=== PATIENT | male | born 1990 | race Caucasian/White ===

== ENCOUNTER 2016-09-14 14:29 | Emergency (ER) | payer SELFPAY ==
[2016-09-14] MEDS ORDERED: NORCO, ANEXSIA 5/325MG TABLET (HYDROcodone/ACETAMINOPHEN) As Ordered ONE (15:17)
[2016-09-14] MEDS ORDERED: AMOXICILLIN 500 MG CAP As Ordered ONE (15:17)
--- NOTE | 2016-09-14 15:25 | EDDOCDS ---
Physician Documentation [facility] Name: Isaac Amato Age: 25 yrs Sex: Male : 1990 Arrival Date: 09/14/2016 Time: 14:29 Bed Triage 3 Private MD: NO PRIMARY PHYSICIAN, . Disposition: 09/14/16 15:11 Discharged to Home/Self Care. Impression: Atypical facial pain - dental caries. - Condition is Stable. - Discharge Instructions: Dental Pain. - Prescriptions for Amoxicillin 500 mg Oral Capsule - take 1 capsule by ORAL route every 8 hours for 10 days; 30 tablet. Naprosyn 500 mg Oral Tablet - take 1 tablet by ORAL route 2 times per day take with food; 30 tablet. Hydrocodone- Acetaminophen 5-325 mg Oral Tablet - take 1 tablet by ORAL route every 6 hours As needed MDD: 4 tabs; 12 tablet. - Medication Reconciliation, Dental Referral List form. - Follow up: Your, Dentist; When: Call to arrange an appointment; Reason: Wound/Symptom Recheck, Recheck today's complaints, Worsening of conditions, Continuance of care. - Problem is an ongoing problem. - Symptoms are unchanged. Historical: - Allergies: no known allergies; - Home Meds: 1. none - PMHx: none; - PSHx: none; - Social history: Smoking status: Patient uses tobacco products, current every day smoker. No barriers to communication noted, The patient speaks fluent Georgian. - Family history: Not pertinent. - : The pt / caregiver states he / she is not on anticoagulants. Home medication list is obtained from the patient. - Exposure Risk Screening:: None identified. Vital Signs: 09/14 14:31 BP 156 / 82; Pulse 87; Resp 16; Temp 98.9(O); Pulse Ox 100% on R/A; Weight 63.5 kg / elp 139.99 lbs (R); Height 5 ft. 5 in. (165.10 cm) (R); Pain 8/10; 14:31 Body Mass Index 23.30 (63.50 kg, 165.10 cm) elp MDM: 15:11 Amoxicillin 500 mg PO once ordered. cc10 15:11 HYDROcodone-acetaminophen 5 mg-325 mg 1 tabs PO once ordered. cc10 Administered Medications: 15:21 Drug: Amoxicillin 500 mg [amoxicillin 500 mg capsule (1 caps)] Route: PO; jennifer 15:21 Drug: HYDROcodone-acetaminophen 1 tabs [hydrocodone 5 mg-acetaminophen 325 mg tablet (1 jmb tabs)] Route: PO; Signatures: Isaac Toledo RN RN dwg Becker, Joshua, RN RN jmb Coniski, Colin, SANTIAGOC PAMarilynC cc10 MTDD
--- NOTE | 2016-09-14 15:25 | EDDOCDS ---
Nurse's Notes [facility] [place] Name: Isaac Amato Age: 25 yrs Sex: Male : 1990 Arrival Date: 09/14/2016 Time: 14:29 Bed Triage 3 Private MD: NO PRIMARY PHYSICIAN, . Diagnosis: Atypical facial pain-dental caries Presentation: 09/14 14:43 Presenting complaint: Patient states: Dental pain, bottom left molar, symptoms for 2 dwg weeks. Adult Sepsis Screening: The patient does not have new or worsening altered mentation. Patient's respiratory rate is less than 22. Systolic blood pressure is greater than 100. Patient has a qSOFA score of 0- Negative Sepsis Screen. Suicide/Homicide risk assessment- the patient denies having any suicidal and/or homicidal ideations and does not present with any other emotional, behavioral or mental health complaints. Status: Patient is not a counseling services manager or dependent. Transition of care: patient was not received from another setting of care. 14:43 Acuity: ALICE Level 5 dwg 14:43 Method Of Arrival: Walkin/Carried/Asstd dwg Triage Assessment: 14:45 General: Appears in no apparent distress. Pain: Pain currently is 8 out of 10 on a pain dwg scale. HIV screening NA for this visit Offered previously. 15:23 EENT: Reports pain in mouth. jmb Historical: - Allergies: no known allergies; - Home Meds: 1. none - PMHx: none; - PSHx: none; - Social history: Smoking status: Patient uses tobacco products, current every day smoker. No barriers to communication noted, The patient speaks fluent Austrian. - Family history: Not pertinent. - : The pt / caregiver states he / she is not on anticoagulants. Home medication list is obtained from the patient. - Exposure Risk Screening:: None identified. Screenin:21 Screening information is obtained from the patient. Fall risk: No risks identified. jmb Assistance ADL's: requires no assistance with activities of daily living. Abuse/DV Screen: The patient / caregiver reports he/she is: not in a situation that causes fear, pain or injury. Nutritional screening: No deficits noted. Advance Directives: Currently, there is no health care proxy. There is no active DNR order. There is no living will. There is no Power of Filler Shaker. home support is adequate. Assessment: 15:21 General: Patient instructed on discharge instructions. Patient asked if there were any jmb questions regarding discharge, patient stated no. Patient signed discharge instructions. Patient discharged in stable condition. . EENT: No deficits noted. Vital Signs: 14:31 BP 156 / 82; Pulse 87; Resp 16; Temp 98.9(O); Pulse Ox 100% on R/A; Weight 63.5 kg (R); elp Height 5 ft. 5 in. (165.10 cm) (R); Pain 8/10; 14:31 Body Mass Index 23.30 (63.50 kg, 165.10 cm) elp Vitals: 14:31 Log In Time: September 14, 2016 at 14:29. el ED Course: 14:30 Patient visited by Araceli Patel PCA. elp 14:30 Patient moved to Waiting elp 14:31 NO PRIMARY PHYSICIAN, . is Private Physician. elp 14:32 Patient visited by Araceli Patel PCA. elp 14:32 Patient moved to Pre RCE elp 14:44 Triage Initiated dwg 15:04 Patient moved to Triage 3 jmb 15:10 Miguel Rai PA-C [facility]. cc10 15:10 Swathi Stock MD is Attending Physician. cc10 15:10 Patient visited by Miguel Rai PA-C. cc10 15:10 Patient visited by Miguel Rai PA-C. cc10 15:11 Your, Dentist is Referral Physician. cc10 15:21 The patient / caregiver is instructed regarding the plan of care and ED course. jmb 15:21 No IV's were initiated during this patient's visit. No procedures done that require jmb assistance. Administered Medications: 15:21 Drug: Amoxicillin 500 mg [amoxicillin 500 mg capsule (1 caps)] Route: PO; jmb 15:21 Drug: HYDROcodone-acetaminophen 1 tabs [hydrocodone 5 mg-acetaminophen 325 mg tablet (1 jmb tabs)] Route: PO; Order Results: There are currently no results for this order. Outcome: 15:11 Discharge ordered by Provider. cc10 15:21 Discharge Assessment: Patient awake, alert and oriented x 3. No cognitive and/or jmb functional deficits noted. Patient verbalized understanding of disposition instructions. Patient awake and alert. obeys commands, Oriented to person, place and time. Patient verbalized understanding of disposition instructions. Patient has no functional deficits. patient administered narcotics - yes. Pt provided with safe discharge. The following High Risk Discharge criteria are identified: None. Discharged to home ambulatory, with family. Condition: stable Condition: improved. Discharge instructions given to patient, Instructed on discharge instructions, follow up and referral plans. medication usage, Demonstrated understanding of instructions, medications, Pt was receptive of discharge instructions/ teaching. Prescriptions given X 3. No special radiology studies were completed. Property sent home with patient. 15:23 Patient left the ED. jennifer Signatures: Isaac Toledo, RN RN Araceli Urias, [employer] COMMUNITY OUTREACH WORKER Francesco Schultz RN RN jmb Coniski, Colin, PAMarilynC PA-C cc10 SANTY
--- NOTE | 2016-09-16 16:25 | EDDOCDS ---
Physician Documentation [facility] Name: Isaac Amato Age: 25 yrs Sex: Male : 1990 Arrival Date: 09/14/2016 Time: 14:29 Bed Triage 3 Private MD: NO PRIMARY PHYSICIAN, . Disposition: 09/14/16 15:11 Discharged to Home/Self Care. Impression: Atypical facial pain - dental caries. - Condition is Stable. - Discharge Instructions: Dental Pain. - Prescriptions for Amoxicillin 500 mg Oral Capsule - take 1 capsule by ORAL route every 8 hours for 10 days; 30 tablet. Naprosyn 500 mg Oral Tablet - take 1 tablet by ORAL route 2 times per day take with food; 30 tablet. Hydrocodone- Acetaminophen 5-325 mg Oral Tablet - take 1 tablet by ORAL route every 6 hours As needed MDD: 4 tabs; 12 tablet. - Medication Reconciliation, Dental Referral List form. - Follow up: Your, Dentist; When: Call to arrange an appointment; Reason: Wound/Symptom Recheck, Recheck today's complaints, Worsening of conditions, Continuance of care. - Problem is an ongoing problem. - Symptoms are unchanged. Historical: - Allergies: no known allergies; - Home Meds: 1. none - PMHx: none; - PSHx: none; - Social history: Smoking status: Patient uses tobacco products, current every day smoker. No barriers to communication noted, The patient speaks fluent Nauruan. - Family history: Not pertinent. - : The pt / caregiver states he / she is not on anticoagulants. Home medication list is obtained from the patient. - Exposure Risk Screening:: None identified. Vital Signs: 09/14 14:31 BP 156 / 82; Pulse 87; Resp 16; Temp 98.9(O); Pulse Ox 100% on R/A; Weight 63.5 kg / elp 139.99 lbs (R); Height 5 ft. 5 in. (165.10 cm) (R); Pain 8/10; 14:31 Body Mass Index 23.30 (63.50 kg, 165.10 cm) elp MDM: 15:11 Amoxicillin 500 mg PO once ordered. cc10 15:11 HYDROcodone-acetaminophen 5 mg-325 mg 1 tabs PO once ordered. cc10 15:27 Financial registration complete. mm15 15:27 [facility] Payment Agreement was scanned into [employer] and attached to record. mm15 17:11 T-Sheet-- Draft Copy was scanned into [employer] and attached to record. klr Administered Medications: 15:21 Drug: Amoxicillin 500 mg [amoxicillin 500 mg capsule (1 caps)] Route: PO; jmb 15:21 Drug: HYDROcodone-acetaminophen 1 tabs [hydrocodone 5 mg-acetaminophen 325 mg tablet (1 jmb tabs)] Route: PO; Signatures: Isaac Toledo RN RN dwg McGrath, Marlynn mm15 Francesco DuRN RN nathalieb Miguel Rai, PAMarilynC PA-C cc10 Stormy Bass The chart was reviewed and I authenticate all verbal orders and agree with the evaluation and treatment provided.Attachments: 15:27 [facility] [place] Agreement mm15 17:11 T-Sheet-- Draft Copy klr Chart Complete MTDD
--- NOTE | 2016-09-16 16:25 | EDDOCDS ---
Physician Documentation [facility] Name: Isaac Amato Age: 25 yrs Sex: Male : 1990 Arrival Date: 09/14/2016 Time: 14:29 Bed Triage 3 Private MD: NO PRIMARY PHYSICIAN, . Disposition: 09/14/16 15:11 Discharged to Home/Self Care. Impression: Atypical facial pain - dental caries. - Condition is Stable. - Discharge Instructions: Dental Pain. - Prescriptions for Amoxicillin 500 mg Oral Capsule - take 1 capsule by ORAL route every 8 hours for 10 days; 30 tablet. Naprosyn 500 mg Oral Tablet - take 1 tablet by ORAL route 2 times per day take with food; 30 tablet. Hydrocodone- Acetaminophen 5-325 mg Oral Tablet - take 1 tablet by ORAL route every 6 hours As needed MDD: 4 tabs; 12 tablet. - Medication Reconciliation, Dental Referral List form. - Follow up: Your, Dentist; When: Call to arrange an appointment; Reason: Wound/Symptom Recheck, Recheck today's complaints, Worsening of conditions, Continuance of care. - Problem is an ongoing problem. - Symptoms are unchanged. Historical: - Allergies: no known allergies; - Home Meds: 1. none - PMHx: none; - PSHx: none; - Social history: Smoking status: Patient uses tobacco products, current every day smoker. No barriers to communication noted, The patient speaks fluent Croatian. - Family history: Not pertinent. - : The pt / caregiver states he / she is not on anticoagulants. Home medication list is obtained from the patient. - Exposure Risk Screening:: None identified. Vital Signs: 09/14 14:31 BP 156 / 82; Pulse 87; Resp 16; Temp 98.9(O); Pulse Ox 100% on R/A; Weight 63.5 kg / elp 139.99 lbs (R); Height 5 ft. 5 in. (165.10 cm) (R); Pain 8/10; 14:31 Body Mass Index 23.30 (63.50 kg, 165.10 cm) elp MDM: 15:11 Amoxicillin 500 mg PO once ordered. cc10 15:11 HYDROcodone-acetaminophen 5 mg-325 mg 1 tabs PO once ordered. cc10 15:27 Financial registration complete. mm15 15:27 [facility] Payment Agreement was scanned into [employer] and attached to record. mm15 17:11 T-Sheet-- Draft Copy was scanned into [employer] and attached to record. klr Administered Medications: 15:21 Drug: Amoxicillin 500 mg [amoxicillin 500 mg capsule (1 caps)] Route: PO; jmb 15:21 Drug: HYDROcodone-acetaminophen 1 tabs [hydrocodone 5 mg-acetaminophen 325 mg tablet (1 jmb tabs)] Route: PO; Signatures: Isaac Toledo RN RN dwg McGrath, Marlynn mm15 Francesco DuRN RN nathalieb Miguel Rai, PAMarilynC PA-C cc10 Stormy Bass The chart was reviewed and I authenticate all verbal orders and agree with the evaluation and treatment provided.Attachments: 15:27 [facility] [place] Payment Agreement mm15 17:11 T-Sheet-- Draft Copy klr Chart Complete MTDD
--- NOTE | 2016-09-16 16:25 | EDDOCDS ---
Nurse's Notes [facility] Name: Isaac Amato Age: 25 yrs Sex: Male : 1990 Arrival Date: 09/14/2016 Time: 14:29 Bed Triage 3 Private MD: NO PRIMARY PHYSICIAN, . Diagnosis: Atypical facial pain-dental caries Presentation: 09/14 14:43 Presenting complaint: Patient states: Dental pain, bottom left molar, symptoms for 2 dwg weeks. Adult Sepsis Screening: The patient does not have new or worsening altered mentation. Patient's respiratory rate is less than 22. Systolic blood pressure is greater than 100. Patient has a qSOFA score of 0- Negative Sepsis Screen. Suicide/Homicide risk assessment- the patient denies having any suicidal and/or homicidal ideations and does not present with any other emotional, behavioral or mental health complaints. Status: Patient is not a community service manager or dependent. Transition of care: patient was not received from another setting of care. 14:43 Acuity: ALICE Level 5 dwg 14:43 Method Of Arrival: Walkin/Carried/Asstd dwg Triage Assessment: 14:45 General: Appears in no apparent distress. Pain: Pain currently is 8 out of 10 on a pain dwg scale. HIV screening NA for this visit Offered previously. 15:23 EENT: Reports pain in mouth. jmb Historical: - Allergies: no known allergies; - Home Meds: 1. none - PMHx: none; - PSHx: none; - Social history: Smoking status: Patient uses tobacco products, current every day smoker. No barriers to communication noted, The patient speaks fluent Andorran. - Family history: Not pertinent. - : The pt / caregiver states he / she is not on anticoagulants. Home medication list is obtained from the patient. - Exposure Risk Screening:: None identified. Screenin:21 Screening information is obtained from the patient. Fall risk: No risks identified. jmb Assistance ADL's: requires no assistance with activities of daily living. Abuse/DV Screen: The patient / caregiver reports he/she is: not in a situation that causes fear, pain or injury. Nutritional screening: No deficits noted. Advance Directives: Currently, there is no health care proxy. There is no active DNR order. There is no living will. There is no Power of Machine Bender. home support is adequate. Assessment: 15:21 General: Patient instructed on discharge instructions. Patient asked if there were any jmb questions regarding discharge, patient stated no. Patient signed discharge instructions. Patient discharged in stable condition. . EENT: No deficits noted. Vital Signs: 14:31 BP 156 / 82; Pulse 87; Resp 16; Temp 98.9(O); Pulse Ox 100% on R/A; Weight 63.5 kg (R); elp Height 5 ft. 5 in. (165.10 cm) (R); Pain 8/10; 14:31 Body Mass Index 23.30 (63.50 kg, 165.10 cm) elp Vitals: 14:31 Log In Time: September 14, 2016 at 14:29[facility] Course: 14:30 Patient visited by Araceli Patel PCA. elp 14:30 Patient moved to Waiting elp 14:31 NO PRIMARY PHYSICIAN, . is Private Physician. elp 14:32 Patient visited by Araceli Patel PCA. elp 14:32 Patient moved to Pre RCE elp 14:44 Triage Initiated dwg 15:04 Patient moved to Triage 3 jmb 15:10 Miguel R[facility]-C [facility] cc10 15:10 Swathi Stock MD is Attending Physician. cc10 15:10 Patient visited by Miguel Rai PA-C. cc10 15:10 Patient visited by Miguel Rai PA-C. cc10 15:11 Your, Dentist is Referral Physician. cc10 15:21 The patient / caregiver is instructed regarding the plan of care and ED course. jmb 15:21 No IV's were initiated during this patient's visit. No procedures done that require jmb assistance. 15:27 [facility] [place] Agreement was scanned into [employer] and attached to record. mm15 17:11 T-Sheet-- Draft Copy was scanned into [employer] and attached to record. klr Administered Medications: 15:21 Drug: Amoxicillin 500 mg [amoxicillin 500 mg capsule (1 caps)] Route: PO; jmb 15:21 Drug: HYDROcodone-acetaminophen 1 tabs [hydrocodone 5 mg-acetaminophen 325 mg tablet (1 jmb tabs)] Route: PO; Order Results: There are currently no results for this order. Outcome: 15:11 Discharge ordered by Provider. cc10 15:21 Discharge Assessment: Patient awake, alert and oriented x 3. No cognitive and/or jmb functional deficits noted. Patient verbalized understanding of disposition instructions. Patient awake and alert. obeys commands, Oriented to person, place and time. Patient verbalized understanding of disposition instructions. Patient has no functional deficits. patient administered narcotics - yes. Pt provided with safe discharge. The following High Risk Discharge criteria are identified: None. Discharged to home ambulatory, with family. Condition: stable Condition: improved. Discharge instructions given to patient, Instructed on discharge instructions, follow up and referral plans. medication usage, Demonstrated understanding of instructions, medications, Pt was receptive of discharge instructions/ teaching. Prescriptions given X 3. No special radiology studies were completed. Property sent home with patient. 15:23 Patient left the ED. jennifer Signatures: Isaac Toledo, RN Gabby Alvarez mm15 Araceli Patel, CIRCUIT BOARD INSPECTOR CIRCUIT BOARD INSPECTOR Francesco Schultz RN RN jmb Coniski, Colin, PA-C PA-C cc10 Stormy Bass Chart Complete MTDRajendra
== END 2016-09-14 15:23 | disposition home or self-care (01) ==
LOC: M ED 14:29
DX: K02.9 Dental caries, unspecified (principal); G50.1 Atypical facial pain; F17.200 Nicotine dependence, unspecified, uncomplicated

== ENCOUNTER 2016-10-14 10:24 | Emergency (ER) | payer SELFPAY ==
[2016-10-14] MEDS ORDERED: AUGMENTIN 875 MG TAB As Ordered ONE (10:41)
[2016-10-14] MEDS ORDERED: KETOROLAC TROMETHAMINE 10 MG TAB As Ordered ONE (10:41)
--- NOTE | 2016-10-14 11:31 | REP ---
RIGHT KNEE, FIVE VIEWS: HISTORY: Trauma. There is no acute fracture or dislocation. The joint spaces are normal in appearance. IMPRESSION: There is no acute fracture or dislocation. Signed by Binu Aburto MD 10/14/2016 11:41 A
--- NOTE | 2016-10-14 11:41 | EDDOCDS ---
Physician Documentation [facility] Name: Isaac Amato Age: 25 yrs Sex: Male : 1990 Arrival Date: 10/14/2016 Time: 10:24 Bed TR8 Private MD: NO PRIMARY PHYSICIAN, . Disposition: 10/14/16 11:29 Discharged to Home/Self Care. Impression: Abrasion of lower leg - right, Pain in right knee, Fall from skateboard. - Condition is Stable. - Discharge Instructions: Abrasion. - Prescriptions for Augmentin 875- 125 mg Oral Tablet - take 1 tablet by ORAL route every 12 hours for 10 days; 20 tablet. Naprosyn 500 mg Oral Tablet - take 1 tablet by ORAL route 2 times per day take with food; 30 tablet. - Medication Reconciliation form. - [facility]; When: Call to arrange an appointment; Reason: To establish care. - Problem is new. - Symptoms have improved. Historical: - Allergies: no known allergies; - Home Meds: 1. none - PMHx: none; - PSHx: none; - Social history: Smoking status: Patient uses tobacco products, current every day smoker. No barriers to communication noted, The patient speaks fluent Taiwanese, Speaks appropriately for age. - Family history: Not pertinent. - : The pt / caregiver states he / she is not on anticoagulants. Home medication list is obtained from the patient. - Exposure Risk Screening:: None identified. Vital Signs: 10/14 10:27 BP 134 / 69; Pulse 80; Resp 18; Temp 96.8(TE); Pulse Ox 100% on R/A; Weight 63.5 kg / nb2 139.99 lbs (R); Height 5 ft. 5 in. (165.10 cm); Pain 6/10; 11:33 BP 135 / 83; Pulse 74; Resp 18; Temp 97.2(T); Pulse Ox 100% on R/A; Pain 6/10; ar3 10:27 Body Mass Index 23.30 (63.50 kg, 165.10 cm) nb2 MDM: 10:39 ketorolac 10 mg PO once ordered. cc10 10:39 Amoxicillin-Clavulanate 875 mg 1 tabs PO once ordered. cc10 10:40 Knee, Complete Ordered. EDMS 10:41 Financial registration complete. lg 11:10 [facility] Payment Agreement was scanned into [employer] and attached to record. lg Administered Medications: 10:45 Drug: ketorolac 10 mg [ketorolac 10 mg tablet (1 tabs)] Route: PO; ead 10:45 Drug: Amoxicillin-Clavulanate 1 tabs [amoxicillin 875 mg-potassium clavulanate 125 mg ead tablet (1 tabs)] Route: PO; Signatures: Dispatcher [employer] EDAlfredo Qiu, Reg Reg lg Mariangel Fajardo,RN RN ead Miguel Rai, PA-C PA-C cc10 The chart was reviewed and I authenticate all verbal orders and agree with the evaluation and treatment provided.Attachments: 11:10 [facility] Payment Agreement lg MTDD
--- NOTE | 2016-10-14 11:41 | EDDOCDS ---
Nurse's Notes [facility] Name: Isaac Amato Age: 25 yrs Sex: Male : 1990 Arrival Date: 10/14/2016 Time: 10:24 Bed TR8 Private MD: NO PRIMARY PHYSICIAN, . Diagnosis: Abrasion of lower leg-right;Pain in right knee;Fall from skateboard Presentation: 10/14 10:32 Presenting complaint: Patient states: "I think my knee is infected and swollen." Pt c/o ead redness/swelling to right knee, reports falling on Friday. Abrasion noted to right knee. Adult Sepsis Screening: The patient does not have new or worsening altered mentation. Patient's respiratory rate is less than 22. Systolic blood pressure is greater than 100. Patient has a qSOFA score of 0- Negative Sepsis Screen. Suicide/Homicide risk assessment- the patient denies having any suicidal and/or homicidal ideations and does not present with any other emotional, behavioral or mental health complaints. Status: Patient is not a patient services manager or dependent. Transition of care: patient was not received from another setting of care. 10:32 Acuity: ALICE Level 3 ead 10:32 Method Of Arrival: Walkin/Carried/Asstd ead Triage Assessment: 10:34 General: Appears in no apparent distress, comfortable, Behavior is appropriate for age, ead cooperative. Pain: Location: posterior aspect of right knee and right knee Pain currently is 6 out of 10 on a pain scale. HIV screening NA for this visit Offered previously. Respiratory: Airway is patent Respiratory effort is even, unlabored. Derm: Skin is red, on right knee. Musculoskeletal: Reports pain in right knee. Historical: - Allergies: no known allergies; - Home Meds: 1. none - PMHx: none; - PSHx: none; - Social history: Smoking status: Patient uses tobacco products, current every day smoker. No barriers to communication noted, The patient speaks fluent Dominican, Speaks appropriately for age. - Family history: Not pertinent. - : The pt / caregiver states he / she is not on anticoagulants. Home medication list is obtained from the patient. - Exposure Risk Screening:: None identified. Screenin:39 Screening information is obtained from the patient. Fall risk: No risks identified. ead Assistance ADL's: requires no assistance with activities of daily living. Abuse/DV Screen: The patient / caregiver reports he/she is: not in a situation that causes fear, pain or injury. Nutritional screening: No deficits noted. home support is adequate. Assessment: 10:49 General: Appears in no apparent distress, comfortable, Behavior is appropriate for age, ead cooperative, pleasant. Neurological: No deficits noted. Respiratory: No deficits noted. Derm: Skin is red, on right knee. Musculoskeletal: Range of motion intact in all extremities. Reports pain in right knee. 11:39 General: Appears in no apparent distress, comfortable, Behavior is appropriate for age, ead cooperative. Neurological: No deficits noted. Respiratory: Airway is patent Respiratory effort is even, unlabored. Derm: Skin is pink, warm & dry. Vital Signs: 10:27 BP 134 / 69; Pulse 80; Resp 18; Temp 96.8(TE); Pulse Ox 100% on R/A; Weight 63.5 kg nb2 (R); Height 5 ft. 5 in. (165.10 cm); Pain 6/10; 11:33 BP 135 / 83; Pulse 74; Resp 18; Temp 97.2(T); Pulse Ox 100% on R/A; Pain 6/10; ar3 10:27 Body Mass Index 23.30 (63.50 kg, 165.10 cm) 2 Vitals: 10:27 Log In Time: October 14, 2016 at 10:22. 2 ED Course: 10:26 Patient visited by Qiana Centeno. nb2 10:26 Patient moved to Waiting nb2 10:27 NO PRIMARY PHYSICIAN, . is Private Physician. nb2 10:28 Patient visited by Qiana Centeno. nb2 10:28 Patient moved to Pre RCE nb2 10:33 Triage Initiated ead 10:35 Miguel Rai PA-C is PHCP. cc10 10:35 Gio Alvarado MD is Attending Physician. cc10 10:35 Patient visited by Miguel Rai PA-C. cc10 10:35 Patient visited by Miguel Rai PA-C. cc10 10:35 Patient moved to Triage 2 ead 10:43 Patient moved to TR7 ead 10:44 Patient moved to TR1 ead 10:45 Patient visited by Mariangel Fajardo RN. ead 10:49 The patient / caregiver is instructed regarding the plan of care and ED course. ead 11:09 Patient name changed from Isaac\\S\\R\\S\\Amato\\S\\ to Isaac\\S\\Dylan\\S\\Amato. EDMS 11:10 [facility] Payment Agreement was scanned into [employer] and attached to record. lg 11:29 [facility] is Referral Physician. cc10 11:30 Patient moved to PR1 / 25 ar3 11:33 Patient visited by Merle Kay PCA. ar3 11:35 Knee, Complete Returned. EDMS 11:39 Patient moved to TR8 ead 11:39 No IV's were initiated during this patient's visit. No procedures done that require ead assistance. Administered Medications: 10:45 Drug: ketorolac 10 mg [ketorolac 10 mg tablet (1 tabs)] Route: PO; ead 10:45 Drug: Amoxicillin-Clavulanate 1 tabs [amoxicillin 875 mg-potassium clavulanate 125 mg ead tablet (1 tabs)] Route: PO; Order Results: Radiology Order: Knee, Complete Test: Knee, Complete REASON FOR EXAMINATION: Trauma; RIGHT KNEE, FIVE VIEWS:; ; HISTORY: Trauma.; ; There is no acute fracture or dislocation. The joint spaces are normal in; appearance.; ; IMPRESSION:; There is no acute fracture or dislocation.; ; Unreviewed; Outcome: 11:29 Discharge ordered by Provider. cc10 11:39 Discharge Assessment: Patient awake and alert. obeys commands, Oriented to person, ead place and time. patient administered narcotics - no. The following High Risk Discharge criteria are identified: None. Discharged to home ambulatory. Condition: improved. Discharge instructions given to patient, Instructed on discharge instructions, follow up and referral plans. medication usage, Demonstrated understanding of instructions, medications, Pt was receptive of discharge instructions/ teaching. Prescriptions given X 2. No special radiology studies were completed. Property sent home with patient. 11:40 Patient left the ED. ead Signatures: Dispatcher [employer] EDVT Soham KeyannaJemal, Reg Reg Merle Kay PCA [employer] ar3 Mariangel Fajardo RN RN ead Miguel Rai, PA-C PA-C cc10 Baart, Qiana nb2 MTDD
--- NOTE | 2016-10-16 12:41 | EDDOCDS ---
Physician Documentation [facility] Name: Isaac Amato Age: 25 yrs Sex: Male : 1990 Arrival Date: 10/14/2016 Time: 10:24 Bed TR8 Private MD: NO PRIMARY PHYSICIAN, . Disposition: 10/14/16 11:29 Discharged to Home/Self Care. Impression: Abrasion of lower leg - right, Pain in right knee, Fall from skateboard. - Condition is Stable. - Discharge Instructions: Abrasion. - Prescriptions for Augmentin 875- 125 mg Oral Tablet - take 1 tablet by ORAL route every 12 hours for 10 days; 20 tablet. Naprosyn 500 mg Oral Tablet - take 1 tablet by ORAL route 2 times per day take with food; 30 tablet. - Medication Reconciliation form. - [facility] up[facility]; When: Call to arrange an appointment; Reason: To establish care. - Problem is new. - Symptoms have improved. Historical: - Allergies: no known allergies; - Home Meds: 1. none - PMHx: none; - PSHx: none; - Social history: Smoking status: Patient uses tobacco products, current every day smoker. No barriers to communication noted, The patient speaks fluent Montenegrin, Speaks appropriately for age. - Family history: Not pertinent. - : The pt / caregiver states he / she is not on anticoagulants. Home medication list is obtained from the patient. - Exposure Risk Screening:: None identified. Vital Signs: 10/14 10:27 BP 134 / 69; Pulse 80; Resp 18; Temp 96.8(TE); Pulse Ox 100% on R/A; Weight 63.5 kg / nb2 139.99 lbs (R); Height 5 ft. 5 in. (165.10 cm); Pain 6/10; 11:33 BP 135 / 83; Pulse 74; Resp 18; Temp 97.2(T); Pulse Ox 100% on R/A; Pain 6/10; ar3 10:27 Body Mass Index 23.30 (63.50 kg, 165.10 cm) nb2 MDM: 10:39 ketorolac 10 mg PO once ordered. cc10 10:39 Amoxicillin-Clavulanate 875 mg 1 tabs PO once ordered. cc10 10:40 Knee, Complete Ordered. EDMS 10:41 Financial registration complete. lg 11:10 [facility] Payment Agreement was scanned into [employer] and attached to record. lg Administered Medications: 10:45 Drug: ketorolac 10 mg [ketorolac 10 mg tablet (1 tabs)] Route: PO; ead 10:45 Drug: Amoxicillin-Clavulanate 1 tabs [amoxicillin 875 mg-potassium clavulanate 125 mg ead tablet (1 tabs)] Route: PO; Signatures: Dispatcher [employer] EDMS Alfredo Rousseau, Reg Reg lg Mariangel Fajardo,RN RN ead Miguel Rai, PA-C PA-C cc10 The chart was reviewed and I authenticate all verbal orders and agree with the evaluation and treatment provided.Attachments: 11:10 [facility] Payment Agreement lg Chart Complete MTDD
--- NOTE | 2016-10-16 12:41 | EDDOCDS ---
Physician Documentation [facility] Name: Isaac Amato Age: 25 yrs Sex: Male : 1990 Arrival Date: 10/14/2016 Time: 10:24 Bed TR8 Private MD: NO PRIMARY PHYSICIAN, . Disposition: 10/14/16 11:29 Discharged to Home/Self Care. Impression: Abrasion of lower leg - right, Pain in right knee, Fall from skateboard. - Condition is Stable. - Discharge Instructions: Abrasion. - Prescriptions for Augmentin 875- 125 mg Oral Tablet - take 1 tablet by ORAL route every 12 hours for 10 days; 20 tablet. Naprosyn 500 mg Oral Tablet - take 1 tablet by ORAL route 2 times per day take with food; 30 tablet. - Medication Reconciliation form. - Follow up: [facility]; When: Call to arrange an appointment; Reason: To establish care. - Problem is new. - Symptoms have improved. Historical: - Allergies: no known allergies; - Home Meds: 1. none - PMHx: none; - PSHx: none; - Social history: Smoking status: Patient uses tobacco products, current every day smoker. No barriers to communication noted, The patient speaks fluent Ugandan, Speaks appropriately for age. - Family history: Not pertinent. - : The pt / caregiver states he / she is not on anticoagulants. Home medication list is obtained from the patient. - Exposure Risk Screening:: None identified. Vital Signs: 10/14 10:27 BP 134 / 69; Pulse 80; Resp 18; Temp 96.8(TE); Pulse Ox 100% on R/A; Weight 63.5 kg / nb2 139.99 lbs (R); Height 5 ft. 5 in. (165.10 cm); Pain 6/10; 11:33 BP 135 / 83; Pulse 74; Resp 18; Temp 97.2(T); Pulse Ox 100% on R/A; Pain 6/10; ar3 10:27 Body Mass Index 23.30 (63.50 kg, 165.10 cm) nb2 MDM: 10:39 ketorolac 10 mg PO once ordered. cc10 10:39 Amoxicillin-Clavulanate 875 mg 1 tabs PO once ordered. cc10 10:40 Knee, Complete Ordered. EDMS 10:41 Financial registration complete. lg 11:10 [facility]END[facility] Payment Agreement was scanned into [employer] and attached to record. lg Administered Medications: 10:45 Drug: ketorolac 10 mg [ketorolac 10 mg tablet (1 tabs)] Route: PO; ead 10:45 Drug: Amoxicillin-Clavulanate 1 tabs [amoxicillin 875 mg-potassium clavulanate 125 mg ead tablet (1 tabs)] Route: PO; Signatures: Dispatcher [employer] EDMS Alfredo Rousseau, Reg Reg lg Mariangel Fajardo,RN RN ead Miguel Rai, PA-C PA-C cc10 The chart was reviewed and I authenticate all verbal orders and agree with the evaluation and treatment provided.Attachments: 11:10 [facility] Payment Agreement lg Chart Complete MTDD
--- NOTE | 2016-10-16 12:41 | EDDOCDS ---
Nurse's Notes [facility] Name: Isaac Amato Age: 25 yrs Sex: Male : 1990 Arrival Date: 10/14/2016 Time: 10:24 Bed TR8 Private MD: NO PRIMARY PHYSICIAN, . Diagnosis: Abrasion of lower leg-right;Pain in right knee;Fall from skateboard Presentation: 10/14 10:32 Presenting complaint: Patient states: "I think my knee is infected and swollen." Pt c/o ead redness/swelling to right knee, reports falling on Friday. Abrasion noted to right knee. Adult Sepsis Screening: The patient does not have new or worsening altered mentation. Patient's respiratory rate is less than 22. Systolic blood pressure is greater than 100. Patient has a qSOFA score of 0- Negative Sepsis Screen. Suicide/Homicide risk assessment- the patient denies having any suicidal and/or homicidal ideations and does not present with any other emotional, behavioral or mental health complaints. Status: Patient is not a dining services director or dependent. Transition of care: patient was not received from another setting of care. 10:32 Acuity: ALICE Level 3 ead 10:32 Method Of Arrival: Walkin/Carried/Asstd ead Triage Assessment: 10:34 General: Appears in no apparent distress, comfortable, Behavior is appropriate for age, ead cooperative. Pain: Location: posterior aspect of right knee and right knee Pain currently is 6 out of 10 on a pain scale. HIV screening NA for this visit Offered previously. Respiratory: Airway is patent Respiratory effort is even, unlabored. Derm: Skin is red, on right knee. Musculoskeletal: Reports pain in right knee. Historical: - Allergies: no known allergies; - Home Meds: 1. none - PMHx: none; - PSHx: none; - Social history: Smoking status: Patient uses tobacco products, current every day smoker. No barriers to communication noted, The patient speaks fluent Israeli, Speaks appropriately for age. - Family history: Not pertinent. - : The pt / caregiver states he / she is not on anticoagulants. Home medication list is obtained from the patient. - Exposure Risk Screening:: None identified. Screenin:39 Screening information is obtained from the patient. Fall risk: No risks identified. ead Assistance ADL's: requires no assistance with activities of daily living. Abuse/DV Screen: The patient / caregiver reports he/she is: not in a situation that causes fear, pain or injury. Nutritional screening: No deficits noted. home support is adequate. Assessment: 10:49 General: Appears in no apparent distress, comfortable, Behavior is appropriate for age, ead cooperative, pleasant. Neurological: No deficits noted. Respiratory: No deficits noted. Derm: Skin is red, on right knee. Musculoskeletal: Range of motion intact in all extremities. Reports pain in right knee. 11:39 General: Appears in no apparent distress, comfortable, Behavior is appropriate for age, ead cooperative. Neurological: No deficits noted. Respiratory: Airway is patent Respiratory effort is even, unlabored. Derm: Skin is pink, warm & dry. Vital Signs: 10:27 BP 134 / 69; Pulse 80; Resp 18; Temp 96.8(TE); Pulse Ox 100% on R/A; Weight 63.5 kg nb2 (R); Height 5 ft. 5 in. (165.10 cm); Pain 6/10; 11:33 BP 135 / 83; Pulse 74; Resp 18; Temp 97.2(T); Pulse Ox 100% on R/A; Pain 6/10; ar3 10:27 Body Mass Index 23.30 (63.50 kg, 165.10 cm) 2 Vitals: 10:27 Log In Time: October 14, 2016 at 10:22. 2 ED Course: 10:26 Patient visited by Qiana Centeno. nb2 10:26 Patient moved to Waiting nb2 10:27 NO PRIMARY PHYSICIAN, . is Private Physician. nb2 10:28 Patient visited by Qiana Centeno. nb2 10:28 Patient moved to Pre RCE nb2 10:33 Triage Initiated ead 10:35 Miguel Rai PA-C is PHCP. cc10 10:35 Gio Alvarado MD is Attending Physician. cc10 10:35 Patient visited by Miguel Rai PA-C. cc10 10:35 Patient visited by Miguel Rai PA-C. cc10 10:35 Patient moved to Triage 2 ead 10:43 Patient moved to TR7 ead 10:44 Patient moved to TR1 ead 10:45 Patient visited by Mariangel Fajardo RN. ead 10:49 The patient / caregiver is instructed regarding the plan of care and ED course. ead 11:09 Patient name changed from Isaac\\S\\R\\S\\Amato\\S\\ to Isaac\\S\\Dylan\\S\\Amato. EDMS 11:10 [facility] Payment Agreement was scanned into [employer] and attached to record. lg 11:29 [facility] is Referral Physician. cc10 11:30 Patient moved to PR1 / 25 ar3 11:33 Patient visited by Merle Kay PCA. ar3 11:35 Knee, Complete Returned. EDMS 11:39 Patient moved to TR8 ead 11:39 No IV's were initiated during this patient's visit. No procedures done that require ead assistance. Administered Medications: 10:45 Drug: ketorolac 10 mg [ketorolac 10 mg tablet (1 tabs)] Route: PO; ead 10:45 Drug: Amoxicillin-Clavulanate 1 tabs [amoxicillin 875 mg-potassium clavulanate 125 mg ead tablet (1 tabs)] Route: PO; Order Results: Radiology Order: Knee, Complete Test: Knee, Complete REASON FOR EXAMINATION: Trauma; RIGHT KNEE, FIVE VIEWS:; ; HISTORY: Trauma.; ; There is no acute fracture or dislocation. The joint spaces are normal in; appearance.; ; IMPRESSION:; ; There is no acute fracture or dislocation.; ; ; Signed by; Binu Aburto MD 10/14/2016 11:41 A; Outcome: 11:29 Discharge ordered by Provider. cc10 11:39 Discharge Assessment: Patient awake and alert. obeys commands, Oriented to person, ead place and time. patient administered narcotics - no. The following High Risk Discharge criteria are identified: None. Discharged to home ambulatory. Condition: improved. Discharge instructions given to patient, Instructed on discharge instructions, follow up and referral plans. medication usage, Demonstrated understanding of instructions, medications, Pt was receptive of discharge instructions/ teaching. Prescriptions given X 2. No special radiology studies were completed. Property sent home with patient. 11:40 Patient left the ED. ead Signatures: [facility] Alfredo Rousseau, Reg Reg Merle Kay PCA NEON LIGHT INSTALLER Mariangel Ruiz RN RN ead Miguel Rai PA-C PA-C cc10 Qiana Centeno nb2 Chart Complete MTDD
== END 2016-10-14 11:40 | disposition home or self-care (01) ==
LOC: M ED 10:24
DX: S80.211A Abrasion, right knee, initial encounter (principal); F17.210 Nicotine dependence, cigarettes, uncomplicated; V00.138A Other skateboard accident, initial encounter; Y92.410 Unspecified street and highway as the place of occurrence of the external cause; Y93.51 Activity, roller skating (inline) and skateboarding; Y99.9 Unspecified external cause status

== ENCOUNTER → 2019-02-08 | Outpatient (CLI) | payer OTHER, SELFPAY | LOC: M OUTALCOH 08:18 | PROVIDERS: ATTEND Psychiatry & Neurology Psychiatry | DX: F12.20 Cannabis dependence, uncomplicated (principal); F10.10 Alcohol abuse, uncomplicated ==

== ENCOUNTER 2019-02-15 10:56 | Outpatient (RCR) | payer OTHER, SELFPAY | END 2019-03-17 | LOC: M OUTALCOH 10:56 | PROVIDERS: ATTEND Psychiatry & Neurology Psychiatry | DX: F12.20 Cannabis dependence, uncomplicated (principal); F10.10 Alcohol abuse, uncomplicated ==

== ENCOUNTER 2020-07-22 13:51 | Emergency (ER) | payer OTHER ==
[~2020-07-22] VITALS: Ht 165.1 cm; Wt 59.1 kg
[2020-07-22] MEDS ORDERED: BOOSTRIX/ADACEL VACCINE (DIPHTH/PERTUSS/ACELL/TETANUS) 0.5ML SYR IM ONE (14:15)
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
[2020-07-22] MEDS ORDERED: KEFL500C17 PO (15:33)
[2020-07-22 15:45] VITALS: BP 135/89
[2020-07-22] MEDS ORDERED: CEPHALEXIN 500 MG CAP PO ONE (15:45)
== END 2020-07-22 15:54 | disposition home or self-care (01) ==
LOC: M ED 13:51 → EDBD 13:51 → M ED 15:54
DX: S52.254A Nondisplaced comminuted fracture of shaft of ulna, right arm, initial encounter for closed fracture (principal); S20.411A Abrasion of right back wall of thorax, initial encounter; V49.49XA Driver injured in collision with other motor vehicles in traffic accident, initial encounter; Y92.410 Unspecified street and highway as the place of occurrence of the external cause; I10 Essential (primary) hypertension; E78.9 Disorder of lipoprotein metabolism, unspecified; F17.210 Nicotine dependence, cigarettes, uncomplicated

== ENCOUNTER 2025-05-08 10:14 | Emergency (ER) | payer OTHER ==
[~2025-05-08] VITALS: Ht 165.1 cm; Wt 58.6 kg
[~2025-05-08 10:14] MED LIST: KEFL500C17 PO
[2025-05-08 11:27] LABS: BASO # 0.1 10^3/uL (0.0-0.2); BASO % 0.5 % (0.0-1.0); EOS # 0.0 10^3/uL (0.0-0.5); EOS % 0.2 % (0.0-3.0); LYMPH # 2.0 10^3/uL (1.5-5.0); LYMPH % 15.1 % (24.0-44.0); MONO # 1.2 10^3/uL (0.0-0.8); MONO % 8.9 % (2.0-8.0); NEUTROPHILS # 9.7 10^3/uL (1.5-8.5); NEUTROPHILS % 73.9 % (36.0-66.0); PLATELET COUNT, AUTOMATED 298 10^3/uL (150-450)
[2025-05-08 11:39] LABS: INR 0.96
[2025-05-08 11:50] LABS: CK-MB VALUE MASS < 1.0 NG/ML (<3.6)
[2025-05-08 11:56] LABS: CALCIUM LEVEL 8.9 MG/DL (8.5-10.1); CARBON DIOXIDE LEVEL 23 MMOL/L (20-31); CHLORIDE LEVEL 107 MMOL/L (98-107); CPK CREATINE PHOSPHOKINASE 44 U/L (46-171); CREATININE FOR GFR 0.49 MG/DL (0.70-1.30); GLOMERULAR FILTRATION RATE > 90.0 (>60); POTASSIUM SERUM 4.4 MMOL/L (3.5-5.1); SODIUM LEVEL 137 MMOL/L (136-145)
[2025-05-08] MEDS: CEFDINIR 300 MG CAP PO ONE (12:24)
[2025-05-08] MEDS: ALBUTEROL 90 MCG/ACT 8 GM HFA INHALER INH ONE (12:24)
[2025-05-08] MEDS: DOXYCYCLINE HYCLATE 100 MG TABLET PO ONE (12:24)
[2025-05-08] MEDS ORDERED: CEFD300CAP PO (12:28)
[2025-05-08] MEDS ORDERED: DOXY-441 PO (12:28)
[2025-05-08] MEDS ORDERED: VENTAER INH (12:28)
[2025-05-08 12:30] VITALS: BP 122/82; TEMP 98; O2SAT 98
== END 2025-05-08 12:38 | disposition home or self-care (01) ==
LOC: M ED 11:50
DX: J18.1 Lobar pneumonia, unspecified organism (principal); F17.200 Nicotine dependence, unspecified, uncomplicated